=== PATIENT | male | born 1965 | race Caucasian/White ===

== ENCOUNTER 2020-07-04 08:18 | Outpatient (CLI) | payer OTHER ==
[~2020-07-04 08:18] MED LIST: ASA325 M1 PO; ATRIPLA; CRESTOR20 MG PO; IBUPROFEN800 MG PO; NEURONTIN800 MG PO; SEPTRA DS TABLE1 TAB PO; ZOVIRAX800 MG PO; [UNRECOGNIZED DRUG - OTHER] DT
== END 2020-07-04 08:23 | disposition home or self-care (01) ==
LOC: NUCLEAR 08:18
PROVIDERS: ATTEND Orthopaedic Surgery
DX: T84.84XA Pain due to internal orthopedic prosthetic devices, implants and grafts, initial encounter (principal); M01.X11 Direct infection of right shoulder in infectious and parasitic diseases classified elsewhere
CPT/HCPCS: 78315; A9503

== ENCOUNTER 2020-07-05 07:33 | Outpatient (CLI) | payer OTHER | END 2020-07-05 07:44 | disposition home or self-care (01) | LOC: NUCLEAR 07:33 | PROVIDERS: ATTEND Orthopaedic Surgery | DX: T84.84XA Pain due to internal orthopedic prosthetic devices, implants and grafts, initial encounter (principal); M01.X11 Direct infection of right shoulder in infectious and parasitic diseases classified elsewhere | CPT/HCPCS: 78802; A9556 ==

== ENCOUNTER 2022-07-19 16:39 | Emergency (ER) | payer OTHER ==
[~2022-07-19] VITALS: Ht 172.7 cm; Wt 104.3 kg
[2022-07-19] MEDS ORDERED: CEFADROXIL500 MG PO (19:13)
[2022-07-19] MEDS ORDERED: ZOVIRAX5 GM TOP (19:13)
== END 2022-07-19 19:23 | disposition home or self-care (01) ==
LOC: ER 16:39
DX: R23.8 Other skin changes (principal); E11.9 Type 2 diabetes mellitus without complications; I11.9 Hypertensive heart disease without heart failure; Z86.72 Personal history of thrombophlebitis; Z86.718 Personal history of other venous thrombosis and embolism; Z91.041 Radiographic dye allergy status; I87.8 Other specified disorders of veins; Z87.09 Personal history of other diseases of the respiratory system; Z88.6 Allergy status to analgesic agent; L03.115 Cellulitis of right lower limb; L97.919 Non-pressure chronic ulcer of unspecified part of right lower leg with unspecified severity

== ENCOUNTER 2025-02-10 12:54 | Emergency (ER) | payer OTHER ==
[~2025-02-10] VITALS: Ht 172.7 cm; Wt 97.5 kg
[~2025-02-10 12:54] MED LIST changes: +CEFADROXIL500 MG PO; +ZOVIRAX5 GM TOP
[2025-02-10] MEDS ORDERED: HYDROCHLOROTH12.5 M2 (13:15)
[2025-02-10] MEDS ORDERED: ZETIA10 MG (13:17)
[2025-02-10] MEDS ORDERED: AMLODIPINE-OLM1 EAC3 (13:17)
[2025-02-10] MEDS ORDERED: PROTONIX40 MG PO (13:17)
[2025-02-10] MEDS ORDERED: PRAVASTATIN SOD10 MG PO (13:18)
[2025-02-10] MEDS ORDERED: SYNJARDY 12.5-1 EACH PO (13:18)
[2025-02-10] MEDS ORDERED: MICARDIS20 MG PO (13:19)
[2025-02-10 14:01] LABS: HEMATOCRIT 34.7 % (39.0-48.0); MEAN CELL VOLUME 87.9 fL (80.0-100.00); MEAN CORPUSCULAR HEMOGLOBIN 30.4 pg (27.00-32.0); MEAN CORPUSCULAR HGB CONC 34.6 g/dl (32.0-36.0); PLATELET COUNT 148 K/uL (150-450); RED BLOOD COUNT 3.95 M/uL (4.00-6.00); RED CELL DISTRIBUTION WIDTH 14.2 % (11.5-14.5)
[2025-02-10 15:15] LABS: ALBUMIN 3.6 gm/dL (3.4-5.0); BILIRUBIN TOTAL 0.7 mg/dL (0.3-1.2); CALCIUM 9.1 mg/dL (8.5-10.1); CREATININE SERUM 1.25 mg/dL (0.70-1.30); GFR 58.72; GLOBULINA 3.3 G/DL (2.4-3.5); POTASSIUM 3.8 mEq/L (3.5-5.1); TOTAL PROTEIN 6.9 gm/dL (6.4-8.2)
[2025-02-10] MEDS ORDERED: KETOROLAC TROMETHAMINE 60 MG VIAL IM ONE ×2 (15:35→15:45)
[2025-02-10] MEDS ORDERED: ACETAMINOPHEN 500 MG GEL..CAP PO STA (16:56)
[2025-02-10] MEDS ORDERED: ACETAMINOPHEN WITH CODEINE 1 UDTAB TABLET PO STA (16:57)
== END 2025-02-10 15:45 | disposition home or self-care (01) ==
LOC: ER 12:54
PROVIDERS: General Practice
DX: S79.819A Other specified injuries of unspecified hip, initial encounter (principal); S39.82XA Other specified injuries of lower back, initial encounter; W19.XXXA Unspecified fall, initial encounter; Y93.89 Activity, other specified; Y92.89 Other specified places as the place of occurrence of the external cause; Y99.8 Other external cause status; M54.50 Low back pain, unspecified; M25.559 Pain in unspecified hip; I10 Essential (primary) hypertension; E11.9 Type 2 diabetes mellitus without complications; Z79.84 Long term (current) use of oral hypoglycemic drugs; Z88.4 Allergy status to anesthetic agent
CPT/HCPCS: 36415; 72100; 73521; 96372; 99283; J1885